=== PATIENT | female | born 1965 | race Caucasian/White ===

== ENCOUNTER 2018-10-09 06:51 | Day surgery (SDC) | payer OTHER ==
[2018-10-09] VITALS (9 sets, daily range): BP systolic 114–133; BP diastolic 56–84; PULSE 79–98; TEMP 97–98.5
[~2018-10-09] VITALS: Ht 167.6 cm; Wt 62.1 kg
[2018-10-09] MEDS ORDERED: PROZAC 10MG10 MG PO (08:46)
[2018-10-09] MEDS ORDERED: ZOCOR 20MG20 MG PO (08:47)
[2018-10-09] MEDS ORDERED: CALAN120 MG PO (08:48)
[2018-10-09] MEDS ORDERED: HCTZ 25MG TAB25 MG PO (08:48)
[2018-10-09] MEDS ORDERED: NORCO 325 MG-51 TAB PO (15:19)
== END 2018-10-09 16:25 | disposition home or self-care (01) ==
LOC: SDCO 06:51
DX: C50.412 Malignant neoplasm of upper-outer quadrant of left female breast (principal); Z17.0 Estrogen receptor positive status [ER+]; E78.00 Pure hypercholesterolemia, unspecified; K21.9 Gastro-esophageal reflux disease without esophagitis; I49.9 Cardiac arrhythmia, unspecified; J45.909 Unspecified asthma, uncomplicated; I10 Essential (primary) hypertension; F32.9 Major depressive disorder, single episode, unspecified; M19.041 Primary osteoarthritis, right hand; M19.042 Primary osteoarthritis, left hand
CPT/HCPCS: A9541; J0360; J0690; J1885; J2250; J2405; J2704; J2795; J3010; J7120